=== PATIENT | male | born 1985 | race American Indian/Alaskan Native ===

== ENCOUNTER 2017-10-10 12:16 | Emergency (ER) | payer BC ==
--- NOTE | 2017-10-10 14:41 | XRay Report ---
ROUTINE CHEST, TWO VIEWS: HISTORY: Cough. There is patchy infiltrate in the lingula and trace left pleural effusion. The remainder of the lungs are clear. Heart and mediastinal structures are within normal limits. The bony structures are intact. IMPRESSION: Lingular pneumonia. Trace left pleural effusion.
[2017-10-10] MEDS ORDERED: GUAIFENESIN DM SYRUP PO ONE (16:33)
[2017-10-10] MEDS ORDERED: TYLENOL PO ONE (16:33)
[2017-10-10] MEDS ORDERED: MOTRIN PO ONE (17:17)
--- NOTE | 2017-10-10 17:42 | Emergency Department Report ---
- General Chief Complaint: Upper Respiratory Infection Stated Complaint: FLU LIKE SYMPTOMS Time Seen by Provider: 10/10/17 16:33 Source: patient Mode of arrival: Ambulatory Limitations: No Limitations - History of Present Illness Initial Comments: 32-year-old male presents with complaint of 5 days of cough and runny nose slightly productive cough with yellow mucus. Patient awake alert and oriented 3 speaking in full sentences no visible respiratory distress no audible wheezing or stridor no trismus noted drooling. Patient denies abdominal pain diarrhea or dysuria hematuria or foul-smelling urine. Patient primarily complaining of persistent cough for the last several days. Denies sick contacts. Denies smoking. States he has been taking Kera Tylenol and ibuprofen with minimal relief. Patient is a no tsmoker. MD Complaint: fever, cough, sore throat, rhinorrhea, nasal congestion - Related Data Previous Rx's Medication Instructions Recorded Last Taken Type Albuterol Sulfate [Ventolin Hfa] 1 gm IH Q4H PRN #1 hfa.aer.ad 10/10/17 Unknown Rx Azithromycin [Zithromax Z-REJI] 250 mg PO QDAY #1 pack 10/10/17 Unknown Rx Naproxen 500 mg PO BID PRN #30 tablet 10/10/17 Unknown Rx Phenylephrine/Dm/Acetaminop/GG 10 ml PO Q6H PRN #1 liquid 10/10/17 Unknown Rx [Mucinex Laza-Kdy-Uejxhzoscr Lq] Allergies Allergy/AdvReac Type Severity Reaction Status Date / Time No Known Allergies Allergy Unverified 10/10/17 13:36 ED Review of Systems ROS: Stated complaint: FLU LIKE SYMPTOMS Other details as noted in HPI ED Past Medical Hx - Past Medical History Previous Medical History?: No - Surgical History Past Surgical History?: No - Social History Smoking Status: Never Smoker Substance Use Type: None - Medications Home Medications: Home Medications Medication Instructions Recorded Confirmed Last Taken Type Albuterol Sulfate [Ventolin Hfa] 1 gm IH Q4H PRN #1 hfa.aer.ad 10/10/17 Unknown Rx Azithromycin [Zithromax Z-REJI] 250 mg PO QDAY #1 pack 10/10/17 Unknown Rx Naproxen 500 mg PO BID PRN #30 tablet 10/10/17 Unknown Rx Phenylephrine/Dm/Acetaminop/GG 10 ml PO Q6H PRN #1 liquid 10/10/17 Unknown Rx [Mucinex Seki-Ipf-Kuaztbknoa Lq] ED Physical Exam - General Limitations: No Limitations ED Course Vital Signs 10/10/17 10/10/17 10/10/17 13:32 16:38 17:16 Temperature 98.8 F 101.4 F H Pulse Rate 97 H 108 H Respiratory 18 18 20 Rate Blood Pressure 106/64 Blood Pressure 114/72 [Right] O2 Sat by Pulse 97 96 Oximetry 10/10/17 10/10/17 10/10/17 17:25 19:01 19:05 Temperature 99.1 F Pulse Rate 98 H Respiratory 16 20 Rate Blood Pressure 111/66 Blood Pressure [Right] O2 Sat by Pulse 97 Oximetry ED Medical Decision Making - Lab Data Result diagrams: 10/10/17 18:00 10/10/17 18:00 - Medical Decision Making A/P: Community-acquired pneumonia 1- case discussed with Dr. Ryan. Labs, xray and VS reviewed. Influenza swab negative 2- CURB-65 Score 0 points Low risk group: 0.6% 30-day mortality. Consider outpatient treatment. PORT /PSI Score 43 points Risk Class II, 0.6-0.9% mortality. Outpatient treatment reasonable, barring other factors affecting care. 3- I reviewed [employer] recommendations on CAP treatment as pt has no comorbidities will select azithromycin fro empiric coverage. https:// [email or web address]?imageKey=[email or web address]&topicKey=ID%7U1697&search= linguilar%20pneumonia%20treatment&rank=1~150&source=see_link 4-I considered prescribing the patient Tamiflu however patient's symptoms started 5 days ago is outside of the window efficacy of Tamiflu. Flu swab also negative. Risks of giving Tamiflu may outweigh the benefits at this time given clinical son are 5- vital signs stable for discharge. Symptomatic treatment with Mucinex, naproxen, albuterol when necessary 6- I advised patient to follow up with primary care and to return to the ED if he experiences worsening symptoms uncontrolled fevers despite Tylenol or NSAID use, chest pain or palpitations or shortness of breath at rest. Patient agreed to do so Critical care attestation.: If time is entered above; I have spent that time in minutes in the direct care of this critically ill patient, excluding procedure time. ED Disposition Clinical Impression: Community acquired pneumonia Qualifiers: Laterality: left Lung location: lower lobe of lung Qualified Code(s): J18.1 - Lobar pneumonia, unspecified organism Disposition: TO HOME OR SELFCARE Is pt being admited?: No Does the pt Need Aspirin: No Condition: Stable Instructions: Bacterial Pneumonia (ED), Community-acquired Pneumonia (ED), Fever in Adults (ED) Prescriptions: Albuterol Sulfate [Ventolin Hfa] 1 gm IH Q4H PRN #1 hfa.aer.ad PRN Reason: Cough Azithromycin [Zithromax Z-REJI] 250 mg PO QDAY #1 pack Naproxen 500 mg PO BID PRN #30 tablet PRN Reason: Pain Phenylephrine/Dm/Acetaminop/GG [Mucinex Jqpz-Bsk-Vwrqudtomw Lq] 10 ml PO Q6H PRN #1 liquid PRN Reason: Cough Referrals: UTE CASTANO MD [Primary Care Provider] - 3[facility]5 Days [facility] [Outside] - 3-5 Days [facility] [Outside] - 3-5 Days CEZAR AIKEN MD [Staff Physician] - 3-5 Days Forms: Work/School Release Form(ED) Time of Disposition: 19:31
[2017-10-10 18:38] LABS: Basophils % (Auto) 0.1 % (0.0-1.8); Eosinophils % (Auto) 0.4 % (0.0-4.3); Hematocrit 42.3 % (35.5-45.6); Hemoglobin 14.4 gm/dl (11.8-15.2); Lymphocytes # (Auto) 0.8 K/mm3 (1.2-5.4); Lymphocytes % (Auto) 9.3 % (13.4-35.0); Mean Corpuscular HGB Conc 34 % (32-34); Mean Corpuscular Hemoglobin 30 pg (28-32); Mean Corpuscular Volume 88 fl (84-94); Monocytes # (Auto) 0.9 K/mm3 (0.0-0.8); Monocytes % (Auto) 10.3 % (0.0-7.3); Platelet Count 220 K/mm3 (140-440); Red Cell Distribution Width 12.7 % (13.2-15.2)
[2017-10-10 18:40] LABS: BUN/Creatinine Ratio 12; Blood Urea Nitrogen 12 mg/dL (9-20); Hemolysis Index 8
[2017-10-10 19:06] VITALS: BP 111/66
[2017-10-10] MEDS ORDERED: ZITHROMAX PO ONE (19:36)
== END 2017-10-10 19:52 | disposition home or self-care (01) ==
LOC: ED 12:16
DX: J18.1 Lobar pneumonia, unspecified organism (principal)
CPT/HCPCS: 36415; 71046; 80048; 82140; 85025; 87400

== ENCOUNTER 2019-01-22 14:00 | Outpatient (CLI) | payer BC ==
[2019-01-22 15:00] LABS: Basophils % (Auto) 0.7 % (0.0-1.8); Eosinophils # (Auto) 0.3 K/mm3 (0.0-0.4); Eosinophils % (Auto) 7.1 % (0.0-4.3); Hematocrit 45.6 % (35.5-45.6); Hemoglobin 15.4 gm/dl (11.8-15.2); Lymphocytes # (Auto) 1.4 K/mm3 (1.2-5.4); Lymphocytes % (Auto) 36.4 % (13.4-35.0); Mean Corpuscular HGB Conc 34 % (32-34); Mean Corpuscular Volume 90 fl (84-94); Monocytes # (Auto) 0.4 K/mm3 (0.0-0.8); Monocytes % (Auto) 9.6 % (0.0-7.3); Platelet Count 281 K/mm3 (140-440); Red Blood Count 5.08 M/mm3 (3.65-5.03); Red Cell Distribution Width 13.3 % (13.2-15.2)
[2019-01-22 15:11] LABS: Color,Urine Yellow (Yellow)
[2019-01-22 15:12] LABS: Bilirubin,Urine Negative (Negative); Blood,Urine Negative (Negative); Protein,Urine <15 mg/dL mg/dL (Negative); Urobilinogen,Urine < 2.0 mg/dL (<2.0)
[2019-01-22 15:20] LABS: Bacteria,Urine 1+ /HPF (Negative); Mucus,Urine Few /HPF; RBC,Urine < 1.0 /HPF (0.0-6.0)
[2019-01-22 15:28] LABS: Hepatitis B Surface Antigen Non-Reactive (Negative); Hepatitis C Virus Antibody Non-Reactive (NonReactive)
[2019-01-22 15:56] LABS: Alanine Aminotransferase 18 units/L (7-56); Albumin 4.3 g/dL (3.9-5); BUN/Creatinine Ratio 12; Blood Urea Nitrogen 11 mg/dL (9-20); Calcium 9.3 mg/dL (8.4-10.2); Hemolysis Index 8
[2019-01-22 15:57] LABS: Bilirubin,Direct < 0.2 mg/dL (0-0.2)
== END 2019-01-22 14:01 | disposition home or self-care (01) ==
LOC: LAB 14:00
PROVIDERS: ATTEND Internal Medicine
DX: R63.0 Anorexia (principal); R73.09 Other abnormal glucose
CPT/HCPCS: 36415; 80053; 80074; 80076; 81001; 84443; 85025; 87806

== ENCOUNTER 2019-06-11 10:58 | Outpatient (CLI) | payer BC ==
[2019-06-11 12:26] LABS: Hematocrit 44.5 % (35.5-45.6); Hemoglobin 15.2 gm/dl (11.8-15.2); Mean Corpuscular HGB Conc 34 % (32-34); Mean Corpuscular Volume 90 fl (84-94); Platelet Count 251 K/mm3 (140-440); Red Blood Count 4.93 M/mm3 (3.65-5.03); Red Cell Distribution Width 13.2 % (13.2-15.2)
[2019-06-11 12:35] LABS: Chol/HDL Ratio 2.74 %
== END 2019-06-11 10:59 | disposition home or self-care (01) ==
LOC: LAB 10:58
PROVIDERS: ATTEND Internal Medicine
DX: D72.89 Other specified disorders of white blood cells (principal); E78.5 Hyperlipidemia, unspecified
CPT/HCPCS: 36415; 80061; 85027

== ENCOUNTER 2021-06-19 10:33 | Outpatient (CLI) | payer BC ==
--- NOTE | 2021-06-19 16:33 | Magnetic Resonance Report ---
MRI ABDOMEN WITHOUT AND WITH CONTRAST INDICATION / CLINICAL INFORMATION: OTHER SPECIFIED DISEASES OF LIVER/K76.69, LIVER MASS, ABD PAIN. TECHNIQUE: Multiplanar, multisequence series were obtained through the abdomen. COMPARISON: None available FINDINGS: LOWER CHEST: No acute abnormality LIVER: There is a mass lesion in the anterior right lobe of the liver which measures approximately 2. 5 cm. This shows peripheral nodular enhancement and fills in on delayed views. GALLBLADDER: No significant abnormality. BILE DUCTS: No significant abnormality. PANCREAS: No significant abnormality. SPLEEN: No significant abnormality. ADRENALS: No significant abnormality. RIGHT KIDNEY / URETER: No significant abnormality. There is a subcentimeter cyst in the lower pole LEFT KIDNEY / URETER: No significant abnormality. STOMACH / VISUALIZED BOWEL: No significant abnormality. PERITONEUM: No free fluid. No free air. No fluid collection. LYMPH NODES: No significant adenopathy. AORTA / ARTERIES: No significant abnormality. IVC / VEINS: No significant abnormality. ADDITIONAL FINDINGS: None. SKELETAL SYSTEM: No significant abnormality. IMPRESSION: 1. The lesion in the right lobe of the liver shows peripheral nodular enhancement and fills in on del ayed views and is characteristic of a cavernous hemangioma. Signer Name: Laz Locke MD Signed: 06/19/2021 4:29 PM Workstation Name: [id number]
== END 2021-06-19 10:34 | disposition home or self-care (01) ==
LOC: MRI 10:33
PROVIDERS: ATTEND Internal Medicine
DX: N28.1 Cyst of kidney, acquired (principal); K76.89 Other specified diseases of liver; K76.9 Liver disease, unspecified
CPT/HCPCS: 74183; A9575